=== PATIENT | female | born 1965 | race American Indian/Alaskan Native ===

== ENCOUNTER 2017-10-25 13:20 | Emergency (ER) | payer OTHER ==
[2017-10-25 13:42] VITALS: BP 137/80; PULSE 107; TEMP 98; BMI 30.4
[2017-10-25] MEDS ORDERED: ACETAMINOPHEN 325 MG TABLET (FP) PO ONE (15:00)
--- NOTE | 2017-10-25 15:04 | PDOC ---
History of Present Illness - General Chief Complaint: Injury Stated Complaint: FALL History Source: Patient Exam Limitations: No Limitations - History of Present Illness Initial Comments: 10/25/17 15:04 Patient states tripped and fell on uneven sidewalk and fell forward striking her left knee on the sidewalk and incurring superficial abrasions. Denies other injury, denies hitting head. Occurred: reports: just prior to arrival, this afternoon Severity: reports: mild, moderate Pain Location: reports: lower extremity Method of Injury: Yes: fall Modifying Factors: improves with: None Loss of Consciousness: no loss of consciousness (left knee) Associated Symptoms (Fall): denies symptoms Past History - Travel Traveled outside of the country in the last 30 days: No Close contact w/someone who was outside of country & ill: No - Past Medical History Allergies/Adverse Reactions: Allergies Allergy/AdvReac Type Severity Reaction Status Date / Time No Known Allergies Allergy Verified 10/25/17 13:38 Home Medications: Ambulatory Orders Unobtainable 10/25/17 COPD: No DVT: No Dementia: No Diabetes: Yes (IDDM) - Immunization History Immunization Up to Date: Yes - Suicide/Smoking/Psychosocial Hx Smoking History: Never smoked Hx Alcohol Use: No Drug/Substance Use Hx: No Substance Use Type: None Review of Systems - Review of Systems Able to Perform ROS?: Yes Is the patient limited Malay proficient: Yes Constitutional: Yes: See HPI, Malaise. No: Symptoms Reported HEENTM: No: Symptoms Reported Musculoskeletal: Yes: Symptoms Reported, See HPI, Joint Pain. No: Joint Swelling Integumentary: Yes: Symptoms Reported, See HPI, Bruising, Rash Neurological: Yes: See HPI. No: Symptoms reported All Other Systems: Reviewed and Negative *Physical Exam - Vital Signs Last Vital Signs Temp Pulse Resp BP Pulse Ox 98.0 F 107 H 5 L 137/80 100 10/25/17 13:38 10/25/17 13:38 10/25/17 13:38 10/25/17 13:38 10/25/17 13:38 - Physical Exam General Appearance: Yes: Nourished, Appropriately Dressed, Apparent Distress HEENT: positive: BRENDAN, Normal ENT Inspection, TMs Normal, Pharynx Normal Neck: positive: Supple. negative: Lymphadenopathy (R), Lymphadenopathy (L) Respiratory/Chest: positive: Lungs Clear Integumentary: positive: Normal Color, Other (superficial abrasion to left knee distal to patella, has full range of motion of knee, no tenderness to medial lateral aspect, is ambulatory with minimal unsteadiness.) Neurologic: positive: wic site coordinator II-XII NML intact, Fully Oriented, Alert, Normal Mood/ Affect, Normal Response, Motor Strength 5/5 Progress Note - Progress Note Progress Note: Wound was cleaned and dressed with bacitracin ointment and bulky dressing. Mother verified patient needed a tetanus booster, which was given. Instructed on wound care and will follow-up with PMD as needed. *DC/Admit/Observation/Transfer Diagnosis at time of Disposition: Abrasion of knee Qualifiers: Encounter type: initial encounter Laterality: left Qualified Code(s): S80.212A - Abrasion, left knee, initial encounter - Discharge Dispostion Disposition: HOME Condition at time of disposition: Stable Decision to Admit order: No - Referrals Referrals: Kayce Vigil MD [Primary Care Provider] - - Patient Instructions Printed Discharge Instructions: DI for Abrasion Additional Instructions: Rest, ice to area on and off for 15 minutes 4-6 times a day Avoid heavy lifting or exercise until pain and swelling is resolved or until further directed Keep area highly elevated to reduce swelling Soak wound daily and reapply bacitracin ointment with dressing until healed Followup with her physician in one to 2 days if not improving, if significantly improved may wait one week for followup Your Tetanus// Pertussis/ Diphtheria Vaccine is updated today/. May use ibuprofen 2-200 mg tablets every 6 hours as needed for pain - Post Discharge Activity
[2017-10-25] MEDS ORDERED: ACETAMINOPHEN 325 MG TABLET (FP) ONE (15:07)
[2017-10-25] MEDS ORDERED: BACITRACIN 15 GM TUBE TOPICAL OINTMENT ONE (16:31)
[2017-10-25] MEDS ORDERED: DIPHTH,PERTUSS(ACELL),TET 0.5 ML DISP.SYRIN IM ONE (16:32)
[2017-10-25] MEDS ORDERED: BACITRACIN 15 GM TUBE TOPICAL OINTMENT TP ONE (16:32)
== END 2017-10-25 16:35 | disposition home or self-care (01) ==
LOC: JERFT 13:20
PROC: 3E0234Z Introduction of Serum, Toxoid and Vaccine into Muscle, Percutaneous Approach (ICD-10-PCS; principal; 2017-10-25)
DX: S80.212A Abrasion, left knee, initial encounter (principal); W18.39XA Other fall on same level, initial encounter; Y93.01 Activity, walking, marching and hiking; Y92.480 Sidewalk as the place of occurrence of the external cause; Y99.8 Other external cause status
CPT/HCPCS: 90471; 90715; 99281-25